=== PATIENT | male | born 1995 | race American Indian/Alaskan Native ===

== ENCOUNTER 2024-09-05 14:19 | Emergency (ER) | payer BC ==
[~2024-09-05] VITALS: Ht 182.9 cm; Wt 81.6 kg
[2024-09-05] MEDS ORDERED: ONDANSETRON HCL 2 MG/ML VIAL IV ONE (15:00)
[2024-09-05] MEDS ORDERED: FAMOTIDINE/PF 20 MG/2 ML VIAL IV ONE (15:00)
[2024-09-05] MEDS ORDERED: 0.9 % SODIUM CHLORIDE 1,000 ML IV ONE (15:00)
[2024-09-05] MEDS ORDERED: ONDANSETRON HCL 2 MG/ML VIAL ONE (15:37)
[2024-09-05] MEDS ORDERED: FAMOTIDINE/PF 20 MG/2 ML VIAL ONE (15:37)
[2024-09-05 16:25] LABS: BASO % 0.2 % (0.1-1.2); HEMATOCRIT 46.8 % (40.1-51.0); HEMOGLOBIN 15.8 g/dL (13.7-17.5); LYMPH # 0.68 (1.18-3.74); LYMPH % 3.6 % (19.3-53.1); MEAN CORPUSCULAR HEMOGLOBIN 28.9 pg (25.6-32.2); MONO # 1.14 (0.24-0.82); MONO % 6.1 % (4.7-12.5); NEUT # 16.73 (1.56-6.13); NEUT % 89.8 % (34.0-71.1); PLATELET COUNT 242 K/uL (163-369); RED BLOOD COUNT 5.46 M/uL (4.63-6.08); RED CELL DISTRIBUTION WIDTH 12.4 % (11.6-14.4)
[2024-09-05 16:32] LABS: ALBUMIN 3.6 gm/dL (3.4-5.0); BILIRUBIN TOTAL 0.67 mg/dL (0.3-1.2); CALCIUM 8.8 mg/dL (8.5-10.1); CREATININE SERUM 0.85 mg/dL (0.70-1.30); GFR 105.13; GLOBULINA 3.6 G/DL (2.4-3.5); POTASSIUM 4.18 mEq/L (3.5-5.1); TOTAL PROTEIN 7.2 gm/dL (6.4-8.2)
[2024-09-05 18:02] LABS: URINE APPEARANCE Clear; URINE BILIRRUBIN Negative (NEGATIVE); URINE BLOOD Negative; URINE COLOR Yellow; URINE GLUCOSE Negative (NEGATIVE); URINE KETONE Trace (NEGATIVE); URINE LEUKOCYTE Negative; URINE NITRATE Negative; URINE PROTEIN Negative (NEGATIVE)
[2024-09-05 18:06] LABS: URINE BACTERIA 78.3 uL (0.0-1933); URINE EPITHELIAL CELLS 6.9 uL (0.0-38.8)
[2024-09-05 18:13] LABS: URINE CAST 0.73 uL (0.0-1.40); URINE RBC 1.4 uL (0.0-20.8)
[2024-09-05 18:29] LABS: COCAINE NEGATIVE (NEGATIVE); METHADONE NEGATIVE (NEGATIVE); OPIATES NEGATIVE (NEGATIVE)
[2024-09-05 18:30] LABS: THC ( Cannabinoids) POSITIVE (NEGATIVE)
[2024-09-05 21:36] LABS: BASO % 0.1 % (0.1-1.2); EOS # 0.01 (0.04-0.54); EOS % 0.1 % (0.7-7.0); HEMATOCRIT 43.7 % (40.1-51.0); HEMOGLOBIN 14.6 g/dL (13.7-17.5); LYMPH # 1.03 (1.18-3.74); LYMPH % 7.6 % (19.3-53.1); MEAN CORPUSCULAR HEMOGLOBIN 28.7 pg (25.6-32.2); MONO % 5.2 % (4.7-12.5); NEUT # 11.71 (1.56-6.13); NEUT % 86.7 % (34.0-71.1); PLATELET COUNT 255 K/uL (163-369); RED BLOOD COUNT 5.08 M/uL (4.63-6.08); RED CELL DISTRIBUTION WIDTH 12.5 % (11.6-14.4)
[2024-09-05] MEDS ORDERED: PEPCID AC20 MG PO (21:45)
[2024-09-05] MEDS ORDERED: ONDANSETRON HCL4 MG PO (21:45)
== END 2024-09-05 22:53 ==
LOC: ER 14:19
PROVIDERS: Emergency Medicine; General Practice
DX: R10.9 Unspecified abdominal pain (principal); F12.90 Cannabis use, unspecified, uncomplicated; E86.0 Dehydration